=== PATIENT | male | born 1930 | race Caucasian/White ===

== ENCOUNTER 2019-08-25 07:03 | Inpatient (IN) ==
[2019-08-20 10:38] LABS: Basophils % 0.4 % (0.0-0.8); Eosinophils # 0.1 10*3/uL (0.0-0.87); Eosinophils % 1.6 % (0.00-10.9); Hematocrit 38.1 VOL% (42.0-52.0); Hemoglobin 12.5 GM/DL (14.0-18.0); Immature Granulocytes % 0.5 %; Immature Granulocytes Absolute 0.04 #; Lymphocytes # 1.9 10*3/uL (1.4-4.0); Lymphocytes % 22.5 % (21.2-54.2); Mean Corpuscular HGB Conc 32.8 GM/DL (32-36); Mean Corpuscular Volume 96.2 FL (87-102); Monocytes % 8.8 % (1.7-12.7); Neutrophils % 66.2 % (38.7-73.9); Platelet Count 239 T/CUMM (130-400); Red Blood Count 3.96 MC/CUMM (3.8-5.5); Red Cell Distribution Width 13.3 % (9.3-17.3); White Blood Count 8.3 T/CUMM (4-12)
[2019-08-20 10:52] LABS: PT Patient Result 10.7 SECS (9.8-11.9)
[2019-08-20 11:08] LABS: Bilirubin,Total 0.4 MG/DL (0.2-1.0); Calcium 8.9 MG/DL (8.5-10.1); Osmolality,Calculated 275.1 MOS/KG (273-304); Total Protein 6.5 G/DL (6.4-8.3)
[~2019-08-25 07:03] MED LIST: VANCOMYCIN INJ 1,000 MG in SODIUM CHLORIDE 0.9% 250 ML IV ONE
[2019-08-25] MEDS ORDERED: VANCOMYCIN 1,000 MG VIAL ONE (07:05)
[2019-08-25] MEDS ORDERED: HEPARIN 5,000 UNIT/1 ML VIAL ONE ×2 (07:31→07:53)
[2019-08-25] MEDS ORDERED: VANCOMYCIN 500 MG VIAL ONE (07:31)
[2019-08-25] MEDS ORDERED: THROMBIN TOPICAL (RECOMBINANT) 5,000 UNIT VIAL TOP ONE (07:31)
[2019-08-25] MEDS ORDERED: BUPIVACAINE 0.5% 50 ML VIAL ONE (07:31)
[2019-08-25] MEDS ORDERED: LIDOCAINE 1% 20 ML VIAL ONE (07:32)
[2019-08-25] MEDS: LACTATED RINGERS 1,000 ML IV SCH ×2 (08:25→12:42)
[2019-08-25] MEDS ORDERED: HYDROmorphone 2 MG/1 ML VIAL IV PRN (11:08)
[2019-08-25] MEDS ORDERED: ONDANSETRON 4 MG/2 ML VIAL IV PRN (11:08)
[2019-08-25] MEDS ORDERED: CHOLESTYRAMINE 4 GM PACK PO PRN (11:10)
[2019-08-25] MEDS ORDERED: fentaNYL 100 MCG/2 ML VIAL ONE (11:19)
[2019-08-25] MEDS ORDERED: PHENYLEPHRINE DRIP 20 MG/250 ML PREMIX IV ONE (11:19)
[2019-08-25] MEDS ORDERED: SEVOFLURANE 1 UNIT/15 MINUTE INH ONE (11:19)
[2019-08-25] MEDS ORDERED: LIDOCAINE 2% 5 ML VIAL ONE (11:19)
[2019-08-25] MEDS ORDERED: propofoL 200 MG/20 ML VIAL IV ONE (11:19)
[2019-08-25] MEDS ORDERED: HEPARIN 10,000 UNIT/10 ML VIAL ONE (11:19)
[2019-08-25] MEDS ORDERED: ONDANSETRON 4 MG/2 ML VIAL ONE (11:19)
[2019-08-25] MEDS ORDERED: HYDROCORTISONE 100 MG VIAL ONE (11:20)
[2019-08-25] MEDS ORDERED: PHENYLEPHRINE 1 MG/10 ML SYRINGE IV ONE (11:20)
[2019-08-25] MEDS ORDERED: NEOSTIGMINE 10 MG/10 ML VIAL ONE (11:20)
[2019-08-25] MEDS ORDERED: ROCURONIUM 100 MG/10 ML VIAL IV ONE (11:20)
[2019-08-25] MEDS ORDERED: ETOMIDATE 40 MG/20 ML VIAL IV ONE (11:20)
[2019-08-25] MEDS ORDERED: GLYCOPYRROLATE 0.4 MG/2 ML VIAL ONE (11:20)
[2019-08-25] MEDS ORDERED: PROTAMINE SULFATE 50 MG/5 ML VIAL IV ONE (11:20)
[2019-08-25] MEDS ORDERED: cilostazoL 100 MG TABLET PO SCH (21:00)
[2019-08-25] MEDS: cilostazoL 100 MG TABLET PO SCH (21:07)
[2019-08-25] MEDS: SIMVASTATIN 40 MG TABLET PO SCH (21:07)
[2019-08-25] MEDS: METOPROLOL SUCCINATE XL 100 MG TABLET PO SCH (21:08)
[2019-08-25] MEDS: ASPIRIN EC 81 MG TABLET PO SCH (21:08)
[2019-08-25] MEDS: DOCUSATE SODIUM 100 MG CAPSULE PO SCH (21:08)
[2019-08-25] MEDS: MULTIVITAMIN PO SCH (21:17)
[2019-08-26] MEDS: LACTATED RINGERS 1,000 ML IV SCH (04:57)
[2019-08-26] MEDS: ENOXAPARIN 30 MG/0.3 ML SYRINGE SUBCUT SCH (06:39)
[2019-08-26 07:06] LABS: Hematocrit 31.6 VOL% (42.0-52.0); Hemoglobin 10.5 GM/DL (14.0-18.0)
[2019-08-26 07:15] LABS: Calcium 8.4 MG/DL (8.5-10.1); Osmolality,Calculated 275.8 MOS/KG (273-304)
[2019-08-26] MEDS ORDERED: ASPIRIN CHEW 81 MG TABLET PO SCH (09:00)
[2019-08-26] MEDS: cilostazoL 100 MG TABLET PO SCH ×2 (09:09→20:07)
[2019-08-26] MEDS: FUROSEMIDE 20 MG TABLET PO SCH (09:10)
[2019-08-26] MEDS: FELODIPINE 5 MG TABLET PO SCH (09:10)
[2019-08-26] MEDS: LOSARTAN 50 MG TABLET PO SCH (09:10)
[2019-08-26] MEDS: METOPROLOL SUCCINATE XL 100 MG TABLET PO SCH ×2 (09:10→21:06)
[2019-08-26] MEDS: CLOPIDOGREL 75 MG TABLET PO SCH (09:10)
[2019-08-26] MEDS: NORTRIPTYLINE 25 MG CAPSULE PO SCH (09:10)
[2019-08-26] MEDS: DOXYCYCLINE HYCLATE 50 MG CAPSULE PO SCH (09:10)
[2019-08-26] MEDS: DOCUSATE SODIUM 100 MG CAPSULE PO SCH ×2 (09:10→20:07)
[2019-08-26] MEDS: SIMVASTATIN 40 MG TABLET PO SCH (20:07)
[2019-08-26] MEDS: ASPIRIN EC 81 MG TABLET PO SCH (20:07)
[2019-08-26] MEDS: MULTIVITAMIN PO SCH (20:11)
[2019-08-27] MEDS: ENOXAPARIN 30 MG/0.3 ML SYRINGE SUBCUT SCH (04:21)
[2019-08-27 06:19] LABS: Hematocrit 28.3 VOL% (42.0-52.0); Hemoglobin 9.2 GM/DL (14.0-18.0)
[2019-08-27] MEDS: DOXYCYCLINE HYCLATE 50 MG CAPSULE PO SCH (09:00)
[2019-08-27] MEDS: FELODIPINE 5 MG TABLET PO SCH (09:01)
[2019-08-27] MEDS: cilostazoL 100 MG TABLET PO SCH ×2 (09:01→20:50)
[2019-08-27] MEDS: DOCUSATE SODIUM 100 MG CAPSULE PO SCH ×2 (09:02→20:49)
[2019-08-27] MEDS: METOPROLOL SUCCINATE XL 100 MG TABLET PO SCH ×2 (09:02→20:49)
[2019-08-27] MEDS: LOSARTAN 50 MG TABLET PO SCH (09:02)
[2019-08-27] MEDS: FUROSEMIDE 20 MG TABLET PO SCH (09:02)
[2019-08-27] MEDS: CLOPIDOGREL 75 MG TABLET PO SCH (09:02)
[2019-08-27] MEDS: NORTRIPTYLINE 25 MG CAPSULE PO SCH (09:03)
[2019-08-27] MEDS: ASPIRIN EC 81 MG TABLET PO SCH (20:50)
[2019-08-27] MEDS: SIMVASTATIN 40 MG TABLET PO SCH (20:50)
[2019-08-27] MEDS: MULTIVITAMIN PO SCH (20:50)
[2019-08-28] MEDS: ENOXAPARIN 30 MG/0.3 ML SYRINGE SUBCUT SCH (04:35)
[2019-08-28 08:54] VITALS: BP 137/53
[2019-08-28] MEDS: cilostazoL 100 MG TABLET PO SCH (09:37)
[2019-08-28] MEDS: METOPROLOL SUCCINATE XL 100 MG TABLET PO SCH (09:38)
[2019-08-28] MEDS: FUROSEMIDE 20 MG TABLET PO SCH (09:38)
[2019-08-28] MEDS: DOCUSATE SODIUM 100 MG CAPSULE PO SCH (09:38)
[2019-08-28] MEDS: CLOPIDOGREL 75 MG TABLET PO SCH (09:38)
[2019-08-28] MEDS: LOSARTAN 50 MG TABLET PO SCH (09:38)
[2019-08-28] MEDS: FELODIPINE 5 MG TABLET PO SCH (09:38)
[2019-08-28] MEDS: DOXYCYCLINE HYCLATE 50 MG CAPSULE PO SCH (09:39)
[2019-08-28] MEDS: NORTRIPTYLINE 25 MG CAPSULE PO SCH (09:39)
== END 2019-08-28 11:05 | disposition home or self-care (01) | DRG 254 ==
LOC: N.SDS 07:03 → N.SDSINP 07:06 → EDSTATUS 08:45 → N.SDSINP 11:08 → N.3E 12:28
PROVIDERS: ADMIT Surgery; ATTEND Surgery

== ENCOUNTER 2019-12-04 13:36 | Inpatient (IN) ==
[2019-12-04] MEDS ORDERED: ceFAZolin 1,000 MG in SYRINGE 1 EACH IV ONE (14:25)
[2019-12-04] MEDS ORDERED: CHOLESTYRAMINE 4 GM PACK PO PRN (14:28)
[2019-12-04] MEDS ORDERED: HEPARIN 5,000 UNIT/1 ML VIAL SUBCUT ONE (15:00)
[2019-12-04 15:23] LABS: Basophils % 0.2 % (0.0-0.8); Eosinophils # 0.1 10*3/uL (0.0-0.87); Eosinophils % 1.1 % (0.00-10.9); Hematocrit 35.8 VOL% (42.0-52.0); Hemoglobin 12.1 GM/DL (14.0-18.0); Immature Granulocytes % 0.3 %; Immature Granulocytes Absolute 0.03 #; Lymphocytes # 1.7 10*3/uL (1.4-4.0); Lymphocytes % 16.7 % (21.2-54.2); Mean Corpuscular HGB Conc 33.8 GM/DL (32-36); Mean Corpuscular Volume 93.7 FL (87-102); Mean Platelet Volume 9.6 FL (9.6-12.0); Monocytes % 8.2 % (1.7-12.7); Neutrophils % 73.5 % (38.7-73.9); Platelet Count 244 T/CUMM (130-400); Red Blood Count 3.82 MC/CUMM (3.8-5.5); Red Cell Distribution Width 14.3 % (9.3-17.3)
[2019-12-04 15:40] LABS: PT Patient Result 10.9 SECS (9.8-11.9); Partial Thromboplastin Time 28.5 SECS (23.9-33.8)
[2019-12-04 15:42] LABS: Albumin 3.2 G/DL (3.4-5.0); Bilirubin,Total 0.4 MG/DL (0.2-1.0); Calcium 8.9 MG/DL (8.5-10.1); Osmolality,Calculated 285.4 MOS/KG (273-304); Total Protein 6.8 G/DL (6.4-8.3)
[2019-12-04] MEDS: METOPROLOL SUCCINATE XL 100 MG TABLET PO SCH (20:38)
[2019-12-04] MEDS: SIMVASTATIN 40 MG TABLET PO SCH (20:39)
[2019-12-04] MEDS: ASPIRIN EC 81 MG TABLET PO SCH (20:39)
[2019-12-04] MEDS: cilostazoL 100 MG TABLET PO SCH (20:39)
[2019-12-04] MEDS: DOCUSATE SODIUM 100 MG CAPSULE PO SCH (20:41)
[2019-12-04] MEDS: HEPARIN 5,000 UNIT/1 ML VIAL SUBCUT SCH (23:47)
[2019-12-05] MEDS: HEPARIN 5,000 UNIT/1 ML VIAL SUBCUT SCH ×2 (05:37→13:57)
[2019-12-05] MEDS ORDERED: HEPARIN 5,000 UNIT/1 ML VIAL ONE ×3 (08:03→10:11)
[2019-12-05] MEDS: LACTATED RINGERS 1,000 ML IV SCH ×2 (08:15→13:49)
[2019-12-05] MEDS ORDERED: ceFAZolin 1,000 MG VIAL ONE (08:38)
[2019-12-05] MEDS ORDERED: NORTRIPTYLINE 25 MG CAPSULE PO SCH (09:00)
[2019-12-05] MEDS ORDERED: ONDANSETRON 4 MG/2 ML VIAL IV PRN (09:46)
[2019-12-05] MEDS ORDERED: HYDROmorphone 2 MG/1 ML VIAL IV PRN (09:46)
[2019-12-05] MEDS ORDERED: SEVOFLURANE 1 UNIT/15 MINUTE INH ONE ×2 (10:09→11:07)
[2019-12-05] MEDS ORDERED: LIDOCAINE 2% 5 ML VIAL ONE ×2 (10:09→11:06)
[2019-12-05] MEDS ORDERED: PHENYLEPHRINE DRIP 20 MG/250 ML PREMIX IV ONE (10:09)
[2019-12-05] MEDS ORDERED: HEPARIN 10,000 UNIT/10 ML VIAL ONE (10:09)
[2019-12-05] MEDS ORDERED: PROTAMINE SULFATE 50 MG/5 ML VIAL IV ONE (10:11)
[2019-12-05] MEDS ORDERED: fentaNYL 100 MCG/2 ML VIAL ONE ×2 (10:11→11:07)
[2019-12-05] MEDS ORDERED: MIDAZOLAM 2 MG/2 ML VIAL ONE (10:11)
[2019-12-05] MEDS ORDERED: ETOMIDATE 40 MG/20 ML VIAL IV ONE (10:11)
[2019-12-05] MEDS ORDERED: GLYCOPYRROLATE 0.4 MG/2 ML VIAL ONE ×2 (10:11→11:07)
[2019-12-05] MEDS ORDERED: KETAMINE 500 MG/10 ML VIAL ONE (10:11)
[2019-12-05] MEDS ORDERED: DEXAMETHASONE 4 MG/1 ML VIAL ONE (10:11)
[2019-12-05] MEDS ORDERED: ACETAMINOPHEN 1,000 MG/100 ML VIAL IV ONE (10:12)
[2019-12-05] MEDS ORDERED: ROCURONIUM 100 MG/10 ML VIAL IV ONE (10:12)
[2019-12-05] MEDS ORDERED: NEOSTIGMINE 10 MG/10 ML VIAL ONE (10:12)
[2019-12-05] MEDS ORDERED: PHENYLEPHRINE 1 MG/10 ML SYRINGE IV ONE ×2 (10:12→11:07)
[2019-12-05] MEDS ORDERED: propofoL 200 MG/20 ML VIAL IV ONE (11:06)
[2019-12-05] MEDS: FELODIPINE 5 MG TABLET PO SCH (12:54)
[2019-12-05] MEDS: LOSARTAN 50 MG TABLET PO SCH (12:54)
[2019-12-05] MEDS: FUROSEMIDE 20 MG TABLET PO SCH (12:54)
[2019-12-05] MEDS: cilostazoL 100 MG TABLET PO SCH ×2 (13:03→21:22)
[2019-12-05] MEDS: DOCUSATE SODIUM 100 MG CAPSULE PO SCH ×2 (13:45→21:22)
[2019-12-05] MEDS: METOPROLOL SUCCINATE XL 100 MG TABLET PO SCH ×2 (13:46→21:22)
[2019-12-05] MEDS: SIMVASTATIN 40 MG TABLET PO SCH (21:23)
[2019-12-05] MEDS: ASPIRIN EC 81 MG TABLET PO SCH (21:23)
[2019-12-06] MEDS ORDERED: ENOXAPARIN 40 MG/0.4 ML SYRINGE SUBCUT SCH (03:48)
[2019-12-06 05:08] LABS: Hematocrit 31.4 VOL% (42.0-52.0); Hemoglobin 10.5 GM/DL (14.0-18.0)
[2019-12-06 05:24] LABS: Calcium 8.6 MG/DL (8.5-10.1); Osmolality,Calculated 282.5 MOS/KG (273-304)
[2019-12-06 09:17] VITALS: BP 136/61
[2019-12-06] MEDS: LOSARTAN 50 MG TABLET PO SCH (09:20)
[2019-12-06] MEDS: METOPROLOL SUCCINATE XL 100 MG TABLET PO SCH (09:23)
[2019-12-06] MEDS: DOCUSATE SODIUM 100 MG CAPSULE PO SCH (09:23)
[2019-12-06] MEDS: cilostazoL 100 MG TABLET PO SCH (09:23)
[2019-12-06] MEDS: FUROSEMIDE 20 MG TABLET PO SCH (09:24)
[2019-12-06] MEDS: FELODIPINE 5 MG TABLET PO SCH (09:24)
[2019-12-06] MEDS: LACTATED RINGERS 1,000 ML IV SCH (09:25)
== END 2019-12-06 11:40 | disposition home or self-care (01) | DRG 253 ==
LOC: N.3E
PROVIDERS: ADMIT Surgery; ATTEND Surgery

== ENCOUNTER 2020-02-23 14:55 | Inpatient (IN) ==
[2020-02-23] MEDS ORDERED: CHOLESTYRAMINE 4 GM PACK PO PRN (16:20)
[2020-02-23] MEDS: oxyCODONE/ACETAMINOPHEN 5-325 MG TABLET PO PRN (16:40)
[2020-02-23 16:55] LABS: Basophils % 0.1 % (0.0-0.8); Eosinophils # 0.1 10*3/uL (0.0-0.87); Eosinophils % 0.4 % (0.00-10.9); Hematocrit 30.5 VOL% (42.0-52.0); Hemoglobin 10.3 GM/DL (14.0-18.0); Immature Granulocytes % 0.4 %; Immature Granulocytes Absolute 0.05 #; Lymphocytes # 1.3 10*3/uL (1.4-4.0); Lymphocytes % 11.1 % (21.2-54.2); Mean Corpuscular HGB Conc 33.8 GM/DL (32-36); Mean Corpuscular Volume 92.7 FL (87-102); Mean Platelet Volume 8.7 FL (9.6-12.0); Monocytes % 7.6 % (1.7-12.7); Neutrophils % 80.4 % (38.7-73.9); Platelet Count 351 T/CUMM (130-400); Red Blood Count 3.29 MC/CUMM (3.8-5.5); Red Cell Distribution Width 12.5 % (9.3-17.3); White Blood Count 11.5 T/CUMM (4-12)
[2020-02-23 17:08] LABS: PT Patient Result 11.2 SECS (9.8-11.9)
[2020-02-23 17:10] LABS: Calcium 9.2 MG/DL (8.5-10.1); Osmolality,Calculated 279.7 MOS/KG (273-304)
[2020-02-23] MEDS: HYDROmorphone 2 MG/1 ML VIAL IV PRN (20:28)
[2020-02-23] MEDS: VANCOMYCIN INJ 1,250 MG in SODIUM CHLORIDE 0.9% 250 ML IV SCH (20:30)
[2020-02-23] MEDS: METOPROLOL SUCCINATE XL 100 MG TABLET PO SCH (20:32)
[2020-02-23] MEDS: MULTIVITAMIN (CENTRUM) TABLET PO SCH (20:32)
[2020-02-23] MEDS: SIMVASTATIN 40 MG TABLET PO SCH (20:33)
[2020-02-23] MEDS: cilostazoL 100 MG TABLET PO SCH (20:33)
[2020-02-23] MEDS: ASPIRIN EC 81 MG TABLET PO SCH (20:33)
[2020-02-23] MEDS: DOCUSATE SODIUM 100 MG CAPSULE PO SCH (20:33)
[2020-02-23] MEDS: DIFLUPREDNATE 0.05% OPH EMUL 5 ML BOTTLE BOTH EYES SCH (20:33)
[2020-02-23 22:29] LABS: Bacteria,Urine Occasional /HPF (Few); Bilirubin,Urine Negative (Negative); Blood, Urine Trace mg/dL (Negative); Glucose,Urine (UA) Negative (Negative); Ketones,Urine Negative (Negative); Mucus,Urine Occasional /LPF (Occasional); Nitrite,Urine Negative (Negative); Protein,Urine Negative; RBC,Urine 6 /HPF (0-4); Squamous Epithelial Cell,Urine Occasional /HPF (0-10); Urine Appearance CLEAR (Clear); Urine Color Yellow (Yellow); Urine Urobilinogen 0.2 EU/DL (0.2-1.0); WBC,Urine 2 /HPF (0-6)
[2020-02-24] MEDS: oxyCODONE/ACETAMINOPHEN 5-325 MG TABLET PO PRN ×2 (00:56→21:33)
[2020-02-24 05:26] LABS: Basophils % 0.2 % (0.0-0.8); Eosinophils % 0.3 % (0.00-10.9); Hematocrit 26.9 VOL% (42.0-52.0); Immature Granulocytes % 0.3 %; Immature Granulocytes Absolute 0.03 #; Lymphocytes # 1.4 10*3/uL (1.4-4.0); Lymphocytes % 12.9 % (21.2-54.2); Mean Corpuscular HGB Conc 33.5 GM/DL (32-36); Mean Corpuscular Volume 93.4 FL (87-102); Mean Platelet Volume 8.8 FL (9.6-12.0); Monocytes % 10.6 % (1.7-12.7); Neutrophils % 75.7 % (38.7-73.9); Platelet Count 313 T/CUMM (130-400); Red Blood Count 2.88 MC/CUMM (3.8-5.5); Red Cell Distribution Width 12.4 % (9.3-17.3); White Blood Count 10.6 T/CUMM (4-12)
[2020-02-24 05:36] LABS: INR 1.1; PT Patient Result 11.6 SECS (9.8-11.9)
[2020-02-24] MEDS: HYDROmorphone 2 MG/1 ML VIAL IV PRN ×3 (05:48→23:47)
[2020-02-24 05:50] LABS: Calcium 8.5 MG/DL (8.5-10.1); Osmolality,Calculated 279.5 MOS/KG (273-304)
[2020-02-24] MEDS: DOCUSATE SODIUM 100 MG CAPSULE PO SCH ×2 (08:52→21:31)
[2020-02-24] MEDS: LOSARTAN 50 MG TABLET PO SCH (08:53)
[2020-02-24] MEDS: DIFLUPREDNATE 0.05% OPH EMUL 5 ML BOTTLE BOTH EYES SCH ×2 (08:53→21:33)
[2020-02-24] MEDS: FUROSEMIDE 20 MG TABLET PO SCH (08:53)
[2020-02-24] MEDS: cilostazoL 100 MG TABLET PO SCH ×2 (08:54→21:31)
[2020-02-24] MEDS: METOPROLOL SUCCINATE XL 100 MG TABLET PO SCH ×2 (08:54→21:32)
[2020-02-24] MEDS: FELODIPINE 5 MG TABLET PO SCH (08:54)
[2020-02-24] MEDS ORDERED: KETOROLAC 10 MG TABLET PO PRN (13:05)
[2020-02-24] MEDS ORDERED: BISACODYL 5 MG TABLET PO PRN (13:05)
[2020-02-24] MEDS ORDERED: LIDOCAINE 2% 5 ML VIAL ONE (13:22)
[2020-02-24] MEDS ORDERED: propofoL 200 MG/20 ML VIAL IV ONE (13:22)
[2020-02-24] MEDS ORDERED: ROCURONIUM 100 MG/10 ML VIAL IV ONE (13:22)
[2020-02-24] MEDS ORDERED: fentaNYL 100 MCG/2 ML VIAL ONE (13:22)
[2020-02-24] MEDS ORDERED: NEOSTIGMINE 10 MG/10 ML VIAL ONE (13:23)
[2020-02-24] MEDS ORDERED: GLYCOPYRROLATE 0.4 MG/2 ML VIAL ONE (13:23)
[2020-02-24] MEDS ORDERED: ONDANSETRON 4 MG/2 ML VIAL ONE (13:23)
[2020-02-24] MEDS ORDERED: KETOROLAC 30 MG/1 ML VIAL ONE (13:23)
[2020-02-24] MEDS ORDERED: PHENYLEPHRINE 10 MG/1 ML VIAL IV ONE (13:23)
[2020-02-24] MEDS ORDERED: SEVOFLURANE 1 UNIT/15 MINUTE INH ONE (13:23)
[2020-02-24] MEDS ORDERED: ACETAMINOPHEN 1,000 MG/100 ML VIAL IV ONE (13:23)
[2020-02-24] MEDS ORDERED: SODIUM CHLORIDE 0.9% 100 ML IV ONE (13:23)
[2020-02-24] MEDS: VANCOMYCIN INJ 1,250 MG in SODIUM CHLORIDE 0.9% 250 ML IV SCH (15:25)
[2020-02-24] MEDS: LACTATED RINGERS 1,000 ML IV SCH (15:33)
[2020-02-24] MEDS: MULTIVITAMIN (CENTRUM) TABLET PO SCH (21:31)
[2020-02-24] MEDS: ASPIRIN EC 81 MG TABLET PO SCH (21:31)
[2020-02-24] MEDS: SIMVASTATIN 40 MG TABLET PO SCH (21:32)
[2020-02-25] MEDS: METOPROLOL SUCCINATE XL 100 MG TABLET PO SCH ×3 (01:48→22:15)
[2020-02-25] MEDS: ENOXAPARIN 30 MG/0.3 ML SYRINGE SUBCUT SCH (05:15)
[2020-02-25] MEDS: LACTATED RINGERS 1,000 ML IV SCH (05:21)
[2020-02-25 06:06] LABS: Basophils % 0.2 % (0.0-0.8); Eosinophils # 0.1 10*3/uL (0.0-0.87); Eosinophils % 1.4 % (0.00-10.9); Hematocrit 25.5 VOL% (42.0-52.0); Hemoglobin 8.3 GM/DL (14.0-18.0); Immature Granulocytes % 0.3 %; Immature Granulocytes Absolute 0.03 #; Lymphocytes # 1.1 10*3/uL (1.4-4.0); Lymphocytes % 12.1 % (21.2-54.2); Mean Corpuscular HGB Conc 32.5 GM/DL (32-36); Mean Corpuscular Volume 94.4 FL (87-102); Mean Platelet Volume 8.9 FL (9.6-12.0); Monocytes % 8.3 % (1.7-12.7); Neutrophils % 77.7 % (38.7-73.9); Platelet Count 290 T/CUMM (130-400); Red Cell Distribution Width 12.5 % (9.3-17.3); White Blood Count 9.4 T/CUMM (4-12)
[2020-02-25 06:22] LABS: Calcium 8.3 MG/DL (8.5-10.1); Osmolality,Calculated 283.3 MOS/KG (273-304)
[2020-02-25] MEDS: FUROSEMIDE 20 MG TABLET PO SCH (09:01)
[2020-02-25] MEDS: ONDANSETRON 4 MG/2 ML VIAL IV PRN ×2 (09:01→17:35)
[2020-02-25] MEDS: HYDROmorphone 2 MG/1 ML VIAL IV PRN ×2 (09:01→17:34)
[2020-02-25] MEDS: cilostazoL 100 MG TABLET PO SCH ×2 (09:01→22:15)
[2020-02-25] MEDS: LOSARTAN 50 MG TABLET PO SCH (09:02)
[2020-02-25] MEDS: DOCUSATE SODIUM 100 MG CAPSULE PO SCH ×2 (09:02→22:16)
[2020-02-25] MEDS: FELODIPINE 5 MG TABLET PO SCH (09:02)
[2020-02-25] MEDS: DIFLUPREDNATE 0.05% OPH EMUL 5 ML BOTTLE BOTH EYES SCH ×2 (09:07→22:16)
[2020-02-25] MEDS: VANCOMYCIN INJ 1,250 MG in SODIUM CHLORIDE 0.9% 250 ML IV SCH (09:09)
[2020-02-25] MEDS: MENTHOL/ZINC OXIDE OINT 71 GM JAR TOP SCH ×2 (19:44→22:16)
[2020-02-25] MEDS: SIMVASTATIN 40 MG TABLET PO SCH (22:15)
[2020-02-25] MEDS: MULTIVITAMIN (CENTRUM) TABLET PO SCH (22:15)
[2020-02-25] MEDS: ASPIRIN EC 81 MG TABLET PO SCH (22:15)
[2020-02-26] MEDS: ENOXAPARIN 30 MG/0.3 ML SYRINGE SUBCUT SCH (06:05)
[2020-02-26] MEDS: cilostazoL 100 MG TABLET PO SCH (10:22)
[2020-02-26] MEDS: METOPROLOL SUCCINATE XL 100 MG TABLET PO SCH (10:22)
[2020-02-26] MEDS: LOSARTAN 50 MG TABLET PO SCH (10:22)
[2020-02-26] MEDS: FELODIPINE 5 MG TABLET PO SCH (10:22)
[2020-02-26] MEDS: DOCUSATE SODIUM 100 MG CAPSULE PO SCH (10:22)
[2020-02-26] MEDS: MENTHOL/ZINC OXIDE OINT 71 GM JAR TOP SCH (10:23)
[2020-02-26] MEDS: FUROSEMIDE 20 MG TABLET PO SCH (10:23)
[2020-02-26] MEDS: oxyCODONE/ACETAMINOPHEN 5-325 MG TABLET PO PRN (10:23)
[2020-02-26] MEDS: DIFLUPREDNATE 0.05% OPH EMUL 5 ML BOTTLE BOTH EYES SCH (10:23)
[2020-02-26 11:56] VITALS: BP 91/51
== END 2020-02-26 15:18 | DRG 240 ==
LOC: N.3E 14:56
PROVIDERS: ADMIT Surgery; ATTEND Surgery